=== PATIENT | male | born 1955 | race Caucasian/White ===

== ENCOUNTER 2023-08-02 10:51 | Day surgery (SDC) | payer MEDICARE, OTHER ==
[~2023-08-02] VITALS: Ht 170.2 cm; Wt 90.7 kg
[2023-08-02] MEDS ORDERED: PROPOFOL 200 MG/20 ML VIAL IV ONE (12:10)
[2023-08-02] MEDS ORDERED: KETAMINE 500 MG/5 ML VIAL ONE (12:10)
[2023-08-02] MEDS ORDERED: MIDAZOLAM 5 MG/5 ML VIAL ONE (12:11)
[2023-08-02] MEDS ORDERED: fentaNYL citrate 0.05 MG/ML VIAL ONE (12:11)
[2023-08-02] MEDS ORDERED: LIDOCAINE/EPI MPF 1%1:200000 30 ML VIAL INJ ONE (13:07)
[2023-08-02] MEDS ORDERED: BUPIVACAINE-MPF 0.5% 10 ML VIAL INJ ONE (13:19)
[2023-08-02] MEDS ORDERED: ceFAZolin 1,000 MG VIAL ONE ×2 (13:23)
[2023-08-02] MEDS ORDERED: HYDROmorphone 1 MG/ML AMP IVP ONE (15:05)
[2023-08-02] MEDS ORDERED: HYDROmorphone PFS 2 MG/ML SYR ONE (15:06)
[2023-08-02] MEDS ORDERED: HYDROmorphone 1 MG/ML AMP IVP PRN (15:35)
[2023-08-02] MEDS ORDERED: ONDANSETRON 4 MG/2 ML VIAL IVP PRN (15:35)
== END 2023-08-02 16:10 | disposition home or self-care (01) ==
LOC: MOR 10:51 → MMU 11:07 → MOR 16:10
PROVIDERS: ATTEND Surgery
DX: K64.8 Other hemorrhoids (principal); I25.10 Atherosclerotic heart disease of native coronary artery without angina pectoris; I25.2 Old myocardial infarction; I12.9 Hypertensive chronic kidney disease with stage 1 through stage 4 chronic kidney disease, or unspecified chronic kidney disease; N18.9 Chronic kidney disease, unspecified; M19.90 Unspecified osteoarthritis, unspecified site; Z79.82 Long term (current) use of aspirin; Z95.5 Presence of coronary angioplasty implant and graft; Z79.899 Other long term (current) drug therapy
CPT/HCPCS: 46260; 71045; 88304; 93005; J0690; J1170; J2001; J2250; J2704; J3010; J3490